=== PATIENT | male | born 1950 | race Hispanic/Latino ===

== ENCOUNTER 2018-04-03 09:03 | Observation (INO) | payer MEDICARE ==
[2018-04-02 09:08] LABS: BASOPHILS # (AUTO) 0.1 (0.0-0.1); BASOPHILS % 0.6 % (0.0-1.0); EOSINOPHILS # (AUTO) 0.2 (0.0-0.4); EOSINOPHILS % 2.5 % (0.0-6.0); HEMATOCRIT 31.2 % (38.2-49.6); HEMOGLOBIN 9.5 g/dL (14.0-18.0); LYMPHOCYTES # (AUTO) 1.9 (1.0-3.2); LYMPHOCYTES % 22.9 % (18.0-39.1); MEAN CORPUSCULAR HEMOGLOBIN 24.7 pg (28-32); MEAN CORPUSCULAR HGB CONC 30.4 g/dL (31-35); MEAN CORPUSCULAR VOLUME 81.3 fL (81-99); MONOCYTES # (AUTO) 0.9 (0.2-0.8); MONOCYTES % 10.4 % (4.4-11.3); NEUTROPHILS # (AUTO) 5.1 (2.1-6.9); NEUTROPHILS % 63.1 % (38.7-80.0); PLATELET COUNT 328 x10e3/uL (140-360); RED BLOOD COUNT 3.84 x10e6/uL (4.3-5.7); RED CELL DISTRIBUTION WIDTH 26.5 % (11.7-14.4)
--- NOTE | 2018-04-02 09:25 | Diagnostic Imaging Report ---
PROCEDURE:CHEST 2 VIEWS TECHNIQUE:PA and lateral chest INDICATION:Preoperative evaluation for left knee surgery COMPARISON:None. FINDINGS: Lungs are symmetrically hyperinflated. Mild scarring at the left lung base. Lungs otherwise clear. No pleural effusions. Normal heart size, mediastinal contour and pulmonary vasculature. Intact skeleton. CONCLUSION: Mild symmetric hyperinflation suggesting air trapping from COPD or large inspiration effort. Dictated by: Max Cheney M.D. on 04/02/2018 at 9:28 Electronically approved by: Max Cheney M.D. on 04/02/2018 at 9:28
[2018-04-02 09:31] LABS: ANION GAP 11.9 mmol/L (8-16); BLOOD UREA NITROGEN 16 mg/dL (7-26); BUN/CREATININE RATIO 16 (6-25); CALCIUM 9.4 mg/dL (8.4-10.2); CARBON DIOXIDE 27 mmol/L (22-29); CHLORIDE 106 mmol/L (98-107); EST GLOMERULAR FILTRATION RATE > 60 ML/MIN (60-); GLUCOSE 102 mg/dL (74-118); POTASSIUM 4.9 mmol/L (3.5-5.1); SODIUM 140 mmol/L (136-145)
[2018-04-02 11:00] LABS: ANISOCYTOSIS MARKED; RBC MORPHOLOGY COMMENT ABNORMAL
[2018-04-02 11:01] LABS: HYPOCHROMASIA MODERATE
[2018-04-02 11:02] LABS: POIKILOCYTOSIS SLIG; TARGET CELLS MODERATE
[2018-04-02] MEDS: TAMSULOSIN HCL 0.4 MG CAP PO SCH (21:10)
[~2018-04-03] VITALS: Ht 167.6 cm; Wt 73.5 kg
[~2018-04-03 09:03] MED LIST: Aspirin PO; CEFAZOLIN SOD 2 GM/D5W 50ML 50 ML IV ONE; CELECOXIB 200 MG CAP ONE; DEXAMETHASONE SOD PHOS 10 MG/1 ML VIAL ONE; FLOMAX0.4 MG PO; GABAPENTIN 300 MG CAP ONE; IRON236 MG PO; METFORMIN HCL500 MG PO; NORCO 7.5-3251 EACH PO; OMEPRAZOLE20 MG PO; ROPIVACAINE 246.25 MG, EPINEPHRINE HCL 1:1000 0.5 MG, CLONIDINE HCL 0.08 MG, KETOROLAC ... INJ ONE; SIMVASTATIN20 MG PO
--- OUTSIDE RECORDS SUMMARY | 2018-04-03 09:05 | XMS REPORT ---
Author [facility] Address Unknown Phone Unavailable Care Team Providers Care Customer Account Representative Name Role Phone TORIBIO HUMPHREYS Unavailable Unavailable Problems This patient has no known problems. Allergies, Adverse Reactions, Alerts This patient has no known allergies or adverse reactions. Medications This patient has no known medications. Results Test Description Test Time Test Comments Text Results Atomic Results Result Comments CHEST 2 VIEWS 2018-04-02 09:28:00 [place] [address] Patient Name: RAFI MONTES MR #: [id number] : 1950 Age/Sex: 67/M Req #: [id number] [facility] Physician: Ordered by: TORIBIO HUMPHREYS MD Report #: [id number] Location: OR Room/Bed: Procedure: [id number] DX/CHEST 2 VIEWS Exam Date: 04/02/18 Exam Time: 909 REPORT STATUS: Signed PROCEDURE: CHEST 2 VIEWS TECHNIQUE: PA and lateral chest INDICATION: Preoperative evaluation for left knee surgery COMPARISON: None. FINDINGS: Lungs are symmetrically hyperinflated. Mild scarring at the left lung base. Lungs otherwise clear. No pleural effusions. Normal heart size, mediastinal contour and pulmonary vasculature. Intact skeleton. CONCLUSION: Mild symmetric hyperinflation suggesting air trapping from COPD or large inspiration effort. Dictated by: Shannan Morris M.D. on 04/02 at 9:28 Electronically approved by: Shannan Morris M.D. on 08/2018 at 9:28 Dictated By: SHANNAN MORRIS MD 7 Transcribed By: KIRBY on 04/02/18927 COPY TO: TORIBIO HUMPHREYS MD
[2018-04-03] MEDS ORDERED: MUPIROCIN 2% OINT 22 GM TUBE ONE (09:47)
[2018-04-03] MEDS ORDERED: TRANEXAMIC ACID 1,000 MG/10 ML ML ONE (09:48)
[2018-04-03] MEDS ORDERED: BACITRACIN 50,000 UNIT VIAL ONE (09:48)
[2018-04-03] MEDS: SODIUM CHLORIDE 0.9% 1000ML 1,000 ML IV SCH ×2 (11:02→21:02)
[2018-04-03] MEDS ORDERED: HYDROCODONE/APAP 5MG-325MG TAB PO PRN (11:15)
[2018-04-03] MEDS ORDERED: DIPHENHYDRAMINE HCL INJ 50 MG/ML VIAL IM/IV PRN (11:15)
[2018-04-03] MEDS ORDERED: ONDANSETRON HCL INJ 2 MG/ML VIAL IV PRN (11:15)
[2018-04-03] MEDS ORDERED: PROMETHAZINE HCL (IM) 25 MG/ML VIAL IM PRN (11:15)
[2018-04-03] MEDS ORDERED: DOCUSATE SODIUM 100 MG CAP PO PRN (11:15)
[2018-04-03] MEDS ORDERED: ACETAMINOPHEN 650 MG SUPP PR PRN (11:15)
[2018-04-03] MEDS ORDERED: KETOROLAC TROMETHAMINE 30 MG/ML VIAL IV PRN (11:15)
[2018-04-03] MEDS: ACETAMINOPHEN 1000 MG/100 ML IV SCH ×3 (12:00→23:40)
[2018-04-03 12:44] VITALS: BP 144/77
[2018-04-03 13:15] VITALS: BP 144/77
[2018-04-03 13:18] VITALS: BP 144/77
[2018-04-03] MEDS ORDERED: CEFAZOLIN SOD 1 GM/NS 50ML 50 ML IV SCH (14:00)
--- NOTE | 2018-04-03 14:01 | Diagnostic Imaging Report ---
PROCEDURE: X-RAY LEFT KNEE, ONE OR TWO VIEWS COMPARISON: None. INDICATIONS:POST OP LEFT KNEE FINDINGS: See conclusion. CONCLUSION: Status post total left knee replacement with surrounding soft tissue swelling, air and elton consistent with recent surgery. No acute fractures. Satisfactory alignment. Gene Starr M.D. Dictated by: Gene Starr M.D. on 04/03/2018 at 14:04 Electronically approved by: Gene Starr M.D. on 04/03/2018 at 14:04
--- NOTE | 2018-04-03 14:11 | Operative Report ---
DATE OF PROCEDURE: April 03, 2018 INFORMATION SYSTEMS PROFESSOR: Isai Perkins PA-C The patient was brought to the operating room for induction of anesthesia. Throughout this case, my PA's assistance was necessary for retraction of soft tissue and positioning of the extremity. This allows for efficient and technically successful execution of the operation and is considered medically necessary. PREOPERATIVE DIAGNOSIS: Osteoarthritis, left knee. POSTOPERATIVE DIAGNOSIS: Osteoarthritis, left knee. PROCEDURE: Left total knee arthroplasty. INDICATIONS: The patient is a 67-year-old gentleman who has end-stage arthritis of his left knee. He has failed conservative management and would like to proceed with a left total knee replacement. The risks and benefits of the procedure have been discussed. He states he understands and wishes to proceed. DESCRIPTION OF PROCEDURE: The patient was brought to the operating room and placed under general anesthetic. He received prophylactic antibiotics, a regional block and tranexamic acid in the holding area. His left lower extremity was prepped and draped in a sterile manner. A preoperative time out was performed. The extremity was exsanguinated and a proximal tourniquet was inflated to 300 mmHg. An anterior approach with a medial parapatellar arthrotomy was performed. Soft tissue releases were performed to bring the knee up into flexion with the patella everted. The cruciate ligaments were sacrificed. A [employer] Deborah II posterior stabilized knee system was used throughout the case. Marginal osteophytes and meniscal remnants were removed. An extramedullary cutting guide was used to resect the proximal tibia. The tibial baseplate was noted to be a size #6. The central fin punch was impacted and attention was directed towards the distal femur. An intramedullary cutting guide was used to resect the distal femur in 6 degrees of valgus and rotation referenced off of a combination of landmarks including [place]'s line, the epicondylar axis and the posterior condyles. The femoral component was also a size #6. The anterior and posterior cuts were made. Trial reductions were performed. A 9 mm ultra congruent tibial insert provided appropriate soft tissue balancing in full extension and 90 degrees of flexion. The patella was resurfaced with a 32 mm x 9 mm patellar button. The thickness was checked before and after and was right at 23 mm. Patellar tracking was noted to be concentric. The trial implants were then all removed. The knee was thoroughly irrigated with a shower-tip pulsatile lavage. A 100 mL premixed pericapsular HARIS injection was placed into the surrounding soft tissue. The components were cemented into place using a single mix of [place] cement preloaded with antibiotics. Care was taken to remove all extravasated cement. The wound was further irrigated with a pulsatile lavage while the cement cured. The arthrotomy was then carefully closed with interrupted #1 Ethibond. The knee was put through flexion and extension to ensure a secure closure of the arthrotomy. The skin was closed with subcuticular Vicryl and elton. A sterile bandage was applied. He was extubated and transported to the recovery room in stable condition. Estimated blood loss was minimal. All needle and sponge counts were correct. Job#: [id number] KATHY
[2018-04-03] MEDS ORDERED: LIDOCAINE 2%/ EPINEPHRINE 20ML MDV ONE (14:35)
[2018-04-03] MEDS ORDERED: ROPIVACAINE 0.5% 5 MG/ML 30 ML SDV ONE (14:35)
[2018-04-03 15:58] VITALS: BP 138/71
[2018-04-03] MEDS: METFORMIN HCL 500 MG TAB PO SCH (17:14)
[2018-04-03] MEDS: CEFAZOLIN SOD 1 GM VIAL IV SCH (17:14)
[2018-04-03] MEDS: CELECOXIB 100 MG CAP PO SCH (17:14)
[2018-04-03] MEDS: ASPIRIN 325 MG TAB PO SCH (17:14)
[2018-04-03] MEDS ORDERED: KETOROLAC TROMETHAMINE 30 MG/ML VIAL ONE (17:19)
[2018-04-03] MEDS ORDERED: PROPOFOL IV EMULSION 10 MG/ML 20 ML VIAL ONE (17:19)
[2018-04-03] MEDS ORDERED: DEXAMETHASONE SOD PHOS INJ 4 MG/ML VIAL ONE (17:19)
[2018-04-03] MEDS ORDERED: LIDOCAINE HCL 2% LOCAL INJ 5 ML SDV VIAL INJ ONE (17:19)
[2018-04-03] MEDS ORDERED: ONDANSETRON HCL INJ 2 MG/ML VIAL ONE (17:19)
[2018-04-03] MEDS ORDERED: SEVOFLURANE INHAL SOLN 250 ML PEN BTL ONE (17:19)
[2018-04-03] MEDS ORDERED: MIDAZOLAM HCL 2 MG/2 ML VIAL ONE (17:29)
[2018-04-03] MEDS ORDERED: MORPHINE SULFATE INJ 10 MG/ML ONE (17:29)
[2018-04-03] MEDS ORDERED: FENTANYL CITRATE/PF 100MCG/2 ML INJ ONE (17:29)
[2018-04-03 20:00] VITALS: BP 122/67
[2018-04-03] MEDS: SIMVASTATIN 20 MG TAB PO SCH (20:57)
[2018-04-03] MEDS ORDERED: ZOLPIDEM TARTRATE 5 MG TAB PO PRN (21:00)
[2018-04-04] VITALS (7 sets, daily range): BP systolic 119–135; BP diastolic 57–66
[2018-04-04] MEDS: CEFAZOLIN SOD 1 GM VIAL IV SCH ×2 (01:43→10:17)
[2018-04-04] MEDS: ACETAMINOPHEN 1000 MG/100 ML IV SCH (05:37)
[2018-04-04 06:17] LABS: HEMATOCRIT 25.9 % (38.2-49.6); HEMOGLOBIN 8.1 g/dL (14.0-18.0)
[2018-04-04] MEDS: SODIUM CHLORIDE 0.9% 1000ML 1,000 ML IV SCH ×2 (07:02→16:11)
[2018-04-04] MEDS: ASPIRIN 325 MG TAB PO SCH ×2 (08:12→16:32)
[2018-04-04] MEDS: HYDROCODONE/APAP 7.5MG-325MG 1 EA TAB PO PRN ×3 (08:12→19:13)
[2018-04-04] MEDS: METFORMIN HCL 500 MG TAB PO SCH ×2 (08:12→16:32)
[2018-04-04] MEDS: PANTOPRAZOLE SOD 40 MG TABEC PO SCH (08:12)
[2018-04-04] MEDS: CELECOXIB 100 MG CAP PO SCH (08:12)
[2018-04-04] MEDS ORDERED: TAMSULOSIN HCL 0.4 MG CAP PO SCH (09:00)
[2018-04-04] MEDS ORDERED: ASPIRIN325 MG PO (09:08)
[2018-04-04] MEDS ORDERED: ACETAMINOPHEN 1000 MG/100 ML IV PRN (11:15)
[2018-04-04] MEDS ORDERED: METRONIDAZOLE 500MG/NS 100ML 100 ML IV ONE (13:24)
[2018-04-04] MEDS: CELECOXIB 200 MG CAP PO SCH (16:32)
[2018-04-04] MEDS: SIMVASTATIN 20 MG TAB PO SCH (21:10)
[2018-04-04] MEDS: TAMSULOSIN HCL 0.4 MG CAP PO SCH (21:10)
[2018-04-05] VITALS: BP 132/60
[2018-04-05] MEDS: HYDROCODONE/APAP 7.5MG-325MG 1 EA TAB PO PRN ×3 (01:16→11:24)
[2018-04-05 04:00] VITALS: BP 141/58
[2018-04-05 06:09] LABS: HEMATOCRIT 27.5 % (38.2-49.6); HEMOGLOBIN 8.5 g/dL (14.0-18.0)
[2018-04-05 07:59] VITALS: BP 155/73
[2018-04-05] MEDS: CELECOXIB 200 MG CAP PO SCH (09:14)
[2018-04-05] MEDS: ASPIRIN 325 MG TAB PO SCH (09:14)
[2018-04-05] MEDS: METFORMIN HCL 500 MG TAB PO SCH (09:14)
[2018-04-05] MEDS: PANTOPRAZOLE SOD 40 MG TABEC PO SCH (09:14)
== END 2018-04-05 12:27 ==
LOC: OR 09:03 → INTOOBSV 11:04 → PACU V 11:04 → MED/SURG 12:17
PROVIDERS: ADMIT Specialist; ATTEND Specialist
DX: M17.12 Unilateral primary osteoarthritis, left knee (principal); E11.9 Type 2 diabetes mellitus without complications; Z83.3 Family history of diabetes mellitus; Z82.61 Family history of arthritis; D64.9 Anemia, unspecified; N40.0 Benign prostatic hyperplasia without lower urinary tract symptoms; Z79.84 Long term (current) use of oral hypoglycemic drugs; Z96.651 Presence of right artificial knee joint
CPT/HCPCS: 27447; 36415 ×4; 71046; 73560; 80048; 82948 ×3; 85014 ×2; 85018 ×2; 85025; 86850; 86900; 86920; 93005; 97110; 97116 ×2; 97139; 97161; 97530; G0378 ×3; G8978; G8979; J0171; J0690 ×2; J1100 ×2; J1885 ×2; J2001 ×2; J2250; J2270; J2405; J2795; S0164 ×2